=== PATIENT | male | born 1980 | race Caucasian/White ===

== ENCOUNTER 2023-01-02 14:58 | Outpatient (OUT) | payer OTHER, SELFPAY ==
--- NOTE | 2023-01-02 15:18 | XR_ITS ---
The [address] [address] Patient Name: GARRISON HERMAN MRN: [id number] date: 1980 Sex: M Assigned Patient Location: RAD Current Patient Location: [facility] Accession/Order Number: [id number] Exam Date: 01/02/2023 15:06 Report Date: 01/02/2023 15:27 At the request of: SHAIKH JONATHAN Procedure: XR knee LT 4V EXAM: XR knee LT 4V HISTORY: Left medial knee pain M25.562 the past 5 months. COMPARISON: None. TECHNIQUE: 4 views of the left knee were obtained. FINDINGS: There is no evidence of an acute fracture or dislocation. The joint spaces are intact. No osteochondral injury is identified. No significant joint effusion is present. No abnormal soft tissue calcifications are present. XR/XR knee LT 4V IMPRESSION: No acute fracture, dislocation or significant degenerative change at the knee. Electronically authenticated by: MANJU JACOBS Date: 01/02/2023 15:27
== END 2023-01-02 14:59 | disposition home or self-care (01) ==
PROVIDERS: PCP Internal Medicine; Visit Provider Internal Medicine
DX: M25.562 Pain in left knee (principal)
CPT/HCPCS: 73564

== ENCOUNTER 2023-01-16 09:41 | Outpatient (OUT) | payer OTHER, SELFPAY ==
--- NOTE | 2023-01-16 09:50 | XR_ITS ---
The [address] [address] Patient Name: GARRISON HERMAN MRN: [id number] date: 1980 Sex: M Assigned Patient Location: RAD Current Patient Location: RAD Accession/Order Number: [id number] Exam Date: 01/16/2023 09:50 Report Date: 01/16/2023 10:11 At the request of: SHAIKH JONATHAN Procedure: XR foreign body eye EXAMINATION: XR foreign body eye HISTORY: rule out foreign body in eye COMPARISON: No relevant comparison available. FINDINGS: ORBITS: Negative for a metallic foreign body. OTHER: Negative. XR/XR foreign body eye IMPRESSION: No metallic foreign body in the orbits Electronically authenticated by: NEHA NOYOLA Date: 01/16/2023 10:11
--- NOTE | 2023-01-16 09:52 | MR_ITS ---
The [address] [address] Patient Name: GARRISON HERMAN MRN: [id number] date: 1980 Sex: M Assigned Patient Location: [facility] Current Patient Location: [facility] Accession/Order Number: [id number] Exam Date: 01/16/2023 10:09 Report Date: 01/16/2023 11:54 At the request of: SHAIKH JONATHAN Procedure: MR knee LT wo con MR knee LT wo con CLINICAL HISTORY: Left Medial Knee Pain for 5 months. M25.562 COMPARISON: 01/02/2023. MR TECHNIQUE: Multiplanar multiecho MRI of the left knee joint is obtained without IV contrast with axial, sagittal, coronal images. T1 weighted and fluid sensitive images are included. FINDINGS: Complex tear left medial meniscus body extending to the junction with the anterior and posterior horns. Focal complex tear of the lateral meniscus body with mild peripheral meniscal displacement. Anterior cruciate and posterior cruciate ligaments are intact. Medial collateral ligament and lateral collateral ligament complex are intact. Extensor mechanism is intact. Small knee joint effusion. No significant popliteal cyst. Intermediate grade partial-thickness chondral fissuring of the weightbearing medial compartment especially medial femoral condyle. Low-grade partial-thickness chondral fissuring of the weightbearing lateral compartment. Patellofemoral compartment cartilage is intact. Mild prepatellar edema. Muscles with normal signal intensity. No fracture or bone marrow edema. MR/MR knee LT wo con IMPRESSION: Complex tear left medial meniscus greater than left lateral meniscus as detailed. Partial-thickness chondral fissuring in the weightbearing left medial compartment greater than lateral compartment. Small knee joint effusion without fracture. Cruciate and collateral ligaments are intact. Electronically authenticated by: ALEXIS CROW Date: 01/16/2023 11:54
== END 2023-01-16 09:42 | disposition home or self-care (01) ==
LOC: RAD 09:41
PROVIDERS: PCP Internal Medicine; Visit Provider Internal Medicine
DX: M25.562 Pain in left knee (principal); S83.232A Complex tear of medial meniscus, current injury, left knee, initial encounter; S83.272A Complex tear of lateral meniscus, current injury, left knee, initial encounter; M25.462 Effusion, left knee
CPT/HCPCS: 70030; 73721

== ENCOUNTER 2023-01-25 08:38 | Outpatient (OUT) | payer OTHER, SELFPAY ==
[2023-01-25 08:48] LABS: Basophils Absolute Auto 0.1 10^3/uL (0.0-0.1); Basophils Percent Auto 0.7 % (0.2-2.0); Eosinophils Absolute Auto 0.2 10^3/uL (0.0-0.7); Eosinophils Percent Auto 2.8 % (0.9-7.0); Hematocrit 39.1 % (42.0-54.0); Hemoglobin 12.1 g/dL (14.0-18.0); Immature Granulocytes Abs Auto 0.03 10^3/uL (0.00-0.03); Immature Granulocytes Pct Auto 0.4 % (0.0-0.5); Lymphocytes Absolute Auto 2.1 10^3/uL (1.2-3.8); Lymphocytes Percent Auto 26.2 % (20.5-60.0); Mean Corpuscular HGB Conc 30.9 g/dL (29.9-35.2); Mean Corpuscular Hemoglobin 25.5 pg (25.9-34.0); Mean Corpuscular Volume 82.3 fL (80.0-94.0); Monocytes Absolute Auto 0.8 10^3/uL (0.3-0.8); Monocytes Percent Auto 9.2 % (1.7-12.0); Neutrophils Absolute Auto 4.9 10^3/uL (1.4-6.5); Neutrophils Percent Auto 60.7 % (43.0-75.0); Platelet Count 414 10^3/uL (150-450); Red Blood Count 4.75 10^6/uL (4.70-6.10); Red Cell Distribution Width 14.9 % (11.0-15.0); White Blood Count 8.1 10^3/uL (4.0-11.0)
[2023-01-25 09:29] LABS: Anion Gap 9.7; Carbon Dioxide 28.5 mmol/L (21.0-32.0); Chloride 102 mmol/L (98-107); Glucose 102 mg/dL (74-106); Potassium 4.2 mmol/L (3.5-5.1); Sodium 136 mmol/L (136-145)
[2023-01-25 09:30] LABS: Alanine Aminotransferase 23 U/L (16-63); Albumin Level 3.8 g/dL (3.4-5.0); Alkaline Phosphatase 100 U/L (46-116); Aspartate Amino Transferase 9 U/L (15-37); BUN Creatinine Ratio 20.7; Bilirubin Total 0.3 mg/dL (0.2-1.0); Calcium 9.1 mg/dL (8.5-10.1); Estimated GFR (African America >60 (>=60); Estimated GFR (Non-African Ame >60 (>=60); Total Protein 7.8 g/dL (6.4-8.2)
[2023-01-25 09:31] LABS: Chol HDL Ratio 3.2; Cholesterol 181 mg/dL (<=200); HDL Cholesterol 56 mg/dL (40-60); Thyroid Stimulating Hormone 0.995 uIU/mL (0.358-3.740); Triglycerides 180 mg/dL (<=150)
[2023-01-25 09:49] LABS: Estimated Average Glucose 117 mg/dL; Glycohemoglobin A1C 5.7 % (4.5-6.2)
== END 2023-01-25 08:39 | disposition home or self-care (01) ==
LOC: LAB 08:38
PROVIDERS: PCP Internal Medicine; Visit Provider Internal Medicine
DX: Z13.220 Encounter for screening for lipoid disorders (principal); Z13.1 Encounter for screening for diabetes mellitus; I10 Essential (primary) hypertension; F41.1 Generalized anxiety disorder
CPT/HCPCS: 36415; 80053; 80061; 83036; 84443; 85025